=== PATIENT | female | born 1985 | race Caucasian/White ===

== ENCOUNTER 2021-12-09 13:19 | Emergency (ER) | payer BC, SELFPAY ==
[2021-12-09 13:29] VITALS: BP 127/86; PULSE 70; RESP 18; TEMP 37.3; O2SAT 100
--- NOTE | 2021-12-09 13:29 | ED.URI ---
HPI - URI/Sore Throat General Chief Complaint: Upper Respiratory Infection Stated Complaint: sinus, congestion, pink eye Time Seen by Provider: 12/09/21 13:30 Source: patient Mode of arrival: ambulatory Limitations: no limitations History of Present Illness HPI Narrative: 36 yo F presents with c/o on sinus congestion, pressure, drainage for 2 wks. Has had redness, drainage, crusting to L eye for several days. Using leftover polymyxin that has helped somewhat. Thinks she needs stronger abx for eye and abx for sinus infection. Reports her children were also sick with H influenza and pneumonia. Has done multiple covid tests that were negative. yesterdfay began feeling fatigued and not well . Denies N//v/D. All systems reviewed and negative except as noted above. Related Data Allergies Allergy/AdvReac Type Severity Reaction Status Date / Time No Known Allergies Allergy Verified 12/09/21 13:25 Review of Systems Review of Systems: CONSTITUTIONAL: Denies fever, chills, or sweats. EYES: Denies visual changes. Reports redness and discharge left eye. ENT: Reports rhinorrhea, congestion, sore throat and ear pressure bilaterally CARDIOVASCULAR: Denies chest pain, palpitations, or edema. RESPIRATORY: Denies cough or dyspnea. GASTROINTESTINAL: Denies abdominal pain, nausea, vomiting, or diarrhea. GENITOURINARY: Denies dysuria or hematuria. SKIN: Denies rash or itching. MUSCULOSKELETAL: Denies back pain, joint pain, or myalgia. NEUROLOGIC: Denies headache, numbness, or weakness. PSYCHIATRIC: Denies anxiety or depression. All other systems reviewed are negative, except as documented in HPI. PMFSH Comments At time of signature, agree with nursing past medical, surgical, social and family history. There is no relevant family history pertinent to the presenting complaint. Exam Narrative: GENERAL: This is a well-nourished, well-developed patient, in no apparent distress. HEAD: normocephalic, atraumatic. EYES: PERRL. Sclera erythematous left eye with erythema and swelling to conjunctive. Crusting noted. Vision is grossly intact. EARS: External ears normal, auditory canals clear and without drainage, clear fluid to bilateral TMs without perforation or bulging. NOSE: External nose normal with mild purulent nasal drainage, moderate congestion, frontal and maxillary sinus tenderness bilaterally. THROAT: Mucous membranes moist, clear postnasal drainage. NECK: Neck supple, non-tender without lymphadenopathy, masses or thyromegaly. CARDIOVASCULAR: Regular rate and rhythm without murmurs, gallops, or rubs. RESPIRATORY: Clear to auscultation. Breath sounds equal bilaterally. No wheezes, rales, or rhonchi. SKIN: warm, Dry, intact with no suspicious lesions or rash, good texture and turgor. NEURO: awake, alert, and oriented to person, place and time. There were no obvious focal neurologic abnormalities. EXTREMITIES: No joint tenderness, effusion, or edema noted. Course Course Level of Care: Express Care Visit Vital Signs Vital signs: Vital Signs Temperature 37.3 C 12/09/21 13:29 Pulse Rate 70 12/09/21 13:29 Respiratory Rate 18 12/09/21 13:29 Blood Pressure 127/86 12/09/21 13:29 Pulse Oximetry 100 12/09/21 13:29 Oxygen Delivery Room Air 12/09/21 13:29 Temperature 37.3 C 12/09/21 13:29 Pulse Rate 70 12/09/21 13:29 Respiratory Rate 18 12/09/21 13:29 Blood Pressure 127/86 12/09/21 13:29 Pulse Oximetry 100 12/09/21 13:29 Oxygen Delivery Room Air 12/09/21 13:29 Reviewed MDM - URI/Sore Throat MDM Narrative Medical decision making narrative: will treat with abx for bacterial sinus infection due to exam findings and duration of symptoms. Patient is aware of diagnosis, understands and agrees to treatment plan. Anticipatory guidance given. Patient agrees to follow-up as directed and is aware of reasons to seek care at the emergency department. Portions of this record may have been created with voice rec
== END 2021-12-09 13:45 | disposition home or self-care (01) ==
PROVIDERS: Emergency Provider Nurse Practitioner Family; PCP Emergency Medicine
DX: J01.90 Acute sinusitis, unspecified (principal); H10.32 Unspecified acute conjunctivitis, left eye; K50.90 Crohn's disease, unspecified, without complications
CPT/HCPCS: 99213; G0463

== ENCOUNTER 2023-01-27 16:17 | Outpatient (CLI) | payer BC, SELFPAY ==
--- NOTE | ~2023-01-27 | US_ITS ---
EXAMINATION:US venous doppler LE LT INDICATION:Lower extremity pain. TECHNIQUE: Multiple grayscale, color flow and Doppler images of the left lower extremity deep venous systems were obtained and reviewed. COMPARISON:No prior studies for comparison. FINDINGS: The common femoral, superficial femoral and popliteal veins demonstrate normal respiratory variation, augmentation and compressibility. Color flow is also seen within the posterior tibial, pe roneal, greater saphenous and profunda veins. IMPRESSION: 1: No lower extremity deep venous thrombosis. Reviewed, dictated and finalized at location B.
== END 2023-01-27 16:18 | disposition home or self-care (01) ==
PROVIDERS: PCP Internal Medicine; Visit Provider Obstetrics & Gynecology
DX: M79.662 Pain in left lower leg (principal)
CPT/HCPCS: 93971

== ENCOUNTER 2023-02-01 16:19 | Emergency (ER) | payer BC, SELFPAY ==
[2023-02-01 16:27] VITALS: BP 124/74; PULSE 76; RESP 16; TEMP 37; O2SAT 100
--- NOTE | 2023-02-01 17:47 | ED.GENADULT ---
HPI - General Adult General Chief complaint: Upper Respiratory Infection Stated complaint: Sore Throat Source: patient Mode of arrival: ambulatory Limitations: no limitations History of Present Illness HPI narrative: Patient presents for evaluation of sore throat since yesterday. She indicates the feels like she is ?swallowing glass?. No fever, chills, nausea, vomiting, cough, shortness of breath, otalgia. She is currently , approximately 9 weeks gestation. She has had an U/S that confirmed IUP during this . She is not taking any medications for her symptoms. She picked up an iced drink on her way here and that has provided her with a considerable amount of relief in her pain. Her daughter has strep. Related Data Allergies Allergy/AdvReac Type Severity Reaction Status Date / Time No Known Allergies Allergy Verified 12/09/21 13:25 Review of Systems Review of Systems: CONSTITUTIONAL: Denies fever, chills, or sweats. EYES: Denies visual changes, redness, or discharge. ENT: Reports sore throat. Denies rhinorrhea, congestion, or otalgia. CARDIOVASCULAR: Denies chest pain, palpitations, or edema. RESPIRATORY: Denies cough or dyspnea. GASTROINTESTINAL: Denies abdominal pain, nausea, vomiting, or diarrhea. GENITOURINARY: Denies dysuria or hematuria. SKIN: Denies rash or itching. MUSCULOSKELETAL: Denies back pain, joint pain, or myalgia. NEUROLOGIC: Denies headache, numbness, dizziness, or weakness. PSYCHIATRIC: Denies anxiety or depression. [facility] Past Medical History Medical History No pertinent past medical history Surgical History Surgical History No pertinent past surgical history Family History Family History Mother Family history non-contributory Social History Social History Smoking status: Never smoker Substance use: never Living arrangements: with family Gender identity (if verbalized by the patient): Female Sexual Orientation (if Verbalized by the Patient): Straight or Heterosexual Spiritual care concerns: No Exam Narrative: GENERAL: Well-appearing, well-nourished, and in no acute distress. HEAD: Normocephalic, atraumatic. EYES: PERRLA and EOMI. ENT: Nares clear, no rhinorrhea or epistaxis. Mucous membranes moist. Oropharynx without tonsillar hypertrophy exudate or other lesions. Bilateral TMs pearly miramontes nonbulging NECK: Supple. No adenopathy or masses. No carotid bruits or JVD CHEST: Clear to auscultation. No respiratory distress. No wheezes rales or rhonchi HEART: Regular rate and rhythm. No murmur heard. Normal peripheral pulses. ABDOMEN: Soft, nontender, nondistended, normal active bowel sounds. EXTREMITIES: Normal range of motion. No edema. SKIN: Warm, dry, no rash. NEURO: No focal deficits. Alert and oriented x3. PSYCH: Normal mood and affect. Course Course Emergency Course: This is a 38-year-old female who presented for evaluation of sore throat after recent strep exposure. She is currently so we discussed risks versus benefits of initiating therapy vs waiting until throat culture results. We opted to provide her with a script for amoxicillin and she will call her OBGYN to determine whether she should proceed with therapy. She will go to the ER for worsening symptoms. Pt in agreement with plan of care. Level of Care: Express Care Visit Vital Signs Vital signs: Vital Signs Temperature 37.0 C 02/01/23 16:27 Pulse Rate 76 02/01/23 16:27 Respiratory Rate 16 02/01/23 16:27 Blood Pressure 124/74 02/01/23 16:27 Pulse Oximetry 100 02/01/23 16:27 Oxygen Delivery Room Air 02/01/23 16:27 Temperature 37.0 C 02/01/23 16:27 Pulse Rate 76 02/01/23 16:27 Respiratory Rate 16
== END 2023-02-01 17:32 | disposition home or self-care (01) ==
PROVIDERS: Emergency Provider Nurse Practitioner
DX: O99.511 Diseases of the respiratory system complicating pregnancy, first trimester (principal); Z3A.09 9 weeks gestation of pregnancy; J02.9 Acute pharyngitis, unspecified; Z20.818 Contact with and (suspected) exposure to other bacterial communicable diseases
CPT/HCPCS: 87081; 87880; 99213; G0463

== ENCOUNTER 2023-06-23 10:32 | Outpatient (RCR) | payer BC, SELFPAY ==
[2023-06-24] MEDS: RHO(D) IMMUNE GLOBULIN 300 MCG/2 ML SYRINGE IM (09:54)
== END 2023-09-21 23:59 | disposition home or self-care (01) ==
LOC: ANHLAB 10:32
PROVIDERS: PCP Internal Medicine; Visit Provider Obstetrics & Gynecology
DX: Z29.13 Encounter for prophylactic Rho(D) immune globulin (principal); O36.0190 Maternal care for anti-D [Rh] antibodies, unspecified trimester, not applicable or unspecified; Z3A.00 Weeks of gestation of pregnancy not specified
CPT/HCPCS: 36415; 85461; 86850; 86900; 86901; 90384; 96372; J2790

== ENCOUNTER 2023-08-13 15:21 | Outpatient (RCR) | payer BC, SELFPAY ==
[2023-08-12] MEDS: BETAMETHASONE SOD PHOS/ACETATE 30 MG/5 ML VIAL 12 MG IM (14:57)
[2023-08-13] MEDS: BETAMETHASONE SOD PHOS/ACETATE 30 MG/5 ML VIAL 12 MG IM (15:36)
== END 2023-11-10 23:59 | disposition home or self-care (01) ==
LOC: ANHOBOP 15:21
PROVIDERS: PCP Internal Medicine; Visit Provider Obstetrics & Gynecology
DX: O36.8990 Maternal care for other specified fetal problems, unspecified trimester, not applicable or unspecified (principal); Z3A.00 Weeks of gestation of pregnancy not specified
CPT/HCPCS: 96372; J0702

== ENCOUNTER 2023-08-22 11:23 | Outpatient (RCR) | payer BC, SELFPAY ==
[2023-08-22 12:26] LABS: Basophils Absolute Auto 0.1 K/mm3 (0.0-0.1); Basophils Percent Auto 0.7 % (0.2-1.2); Eosinophils Absolute Auto 0.2 K/mm3 (0-0.3); Eosinophils Percent Auto 1.8 % (0-4.4); Hematocrit 33.2 % (37.0-47.0); Immature Granulocyte Absolute 0.27 K/mm3 (0.00-0.031); Immature Granulocyte Percent A 2.7 % (0-0.5); Lymphocytes Absolute Auto 0.85 K/mm3 (0.9-3.2); Lymphocytes Percent Auto 8.4 % (18.3-44.2); Mean Corpuscular HGB Conc 33.1 g/dl (32-36); Mean Corpuscular Hemoglobin 32.2 pg (26-34); Mean Corpuscular Volume 97.1 fl (80-100); Mean Platelet Volume 10.5 fl (7.4-10.4); Monocytes Absolute Auto 0.6 K/mm3 (0.1-0.6); Neutrophils Absolute Auto 8.1 K/mm3 (1.3-6.7); Neutrophils Percent Auto 80.4 % (45.5-73.1); Platelet Count Result 248 k/mm3 (150-375); Red Blood Count 3.42 M/mm3 (4.2-5.4); Red Cell Distribution Width 13.8 % (11.5-14.5); White Blood Count 10.1 K/mm3 (4.5-10.0)
[2023-08-22 12:35] VITALS: BP 122/73; PULSE 91
== END 2023-11-20 23:59 | disposition home or self-care (01) ==
LOC: ANHOBOP 11:23
PROVIDERS: PCP Internal Medicine; Visit Provider Obstetrics & Gynecology
DX: O99.891 Other specified diseases and conditions complicating pregnancy (principal); R23.3 Spontaneous ecchymoses; Z3A.36 36 weeks gestation of pregnancy
CPT/HCPCS: 36415; 59025; 85025

== ENCOUNTER 2023-08-30 23:52 | Inpatient (IN) | payer BC, SELFPAY ==
[2023-08-31] VITALS (98 sets, daily range): BP systolic 98–145; BP diastolic 50–99; PULSE 62–146; RESP 18; TEMP 36.6–36.9; O2SAT 99–100; BMI 24.2
[2023-08-31] MEDS: AMPICILLIN 2 GM/NS 100 ML 2 GM/100 ML BAG IVPB (00:48)
[2023-08-31] MEDS: LACTATED RINGERS 1,000 ML 125 ML IV CONT ×3 (00:48→08:13)
--- NOTE | 2023-08-31 00:58 | LDADM ---
This patient, Colleen Coley, was admitted to Labor/Delivery/Recovery 105 on 08/30/23 at 23:52. Plans for labor, pain management and were discussed with patient. Patient/family oriented to hospital policies and general routines including ID bracelet, bed and alarms, visiting hours, pain management, procedures, bathroom and other care routines, personal items, smoking policy, room service/diet and guest tray routines, security routines, and visiting hours. Patient/Family are encouraged to report perceived risks to care and to ask questions if they do not understand what they are told or what they should do. See OBIX for further documentation.
[2023-08-31 01:13] LABS: Basophils Absolute Auto 0.1 K/mm3 (0.0-0.1); Basophils Percent Auto 0.6 % (0.2-1.2); Eosinophils Absolute Auto 0.2 K/mm3 (0-0.3); Eosinophils Percent Auto 2.4 % (0-4.4); Hematocrit 31.9 % (37.0-47.0); Hemoglobin 10.8 g/dL (12.0-15.0); Immature Granulocyte Absolute 0.23 K/mm3 (0.00-0.031); Immature Granulocyte Percent A 2.3 % (0-0.5); Lymphocytes Absolute Auto 1.03 K/mm3 (0.9-3.2); Lymphocytes Percent Auto 10.5 % (18.3-44.2); Mean Corpuscular HGB Conc 33.9 g/dl (32-36); Mean Corpuscular Hemoglobin 32.6 pg (26-34); Mean Corpuscular Volume 96.4 fl (80-100); Monocytes Absolute Auto 0.6 K/mm3 (0.1-0.6); Monocytes Percent Auto 6.3 % (2.6-8.5); Neutrophils Absolute Auto 7.7 K/mm3 (1.3-6.7); Neutrophils Percent Auto 77.9 % (45.5-73.1); Platelet Count Result 203 k/mm3 (150-375); Red Blood Count 3.31 M/mm3 (4.2-5.4); Red Cell Distribution Width 13.6 % (11.5-14.5); White Blood Count 9.8 K/mm3 (4.5-10.0)
[2023-08-31] MEDS: AMPICILLIN 1 GM/NS 50 ML 1 GM/50 ML BAG IVPB ×2 (04:50→08:31)
[2023-08-31] MEDS: OXYTOCIN 30 UNITS/NS 500 ML 30 UNITS/500 ML BAG IV CONT (05:55)
--- NOTE | 2023-08-31 08:05 | WPDOBADMIT ---
Obstetrics - Admit Note Admission Note: record reviewed. No pertinent additions to the history and/or any subsequent changes in the physical findings that are not consistent with the expected course of the were found. Additions to the history and/or subsequent changes in the physical findings follow. Admitted with SROM in early labor @ 37 5/7 wks. Stalled labor at 6 cm so augmenting with pitocin and ROM forebag. FHTs category 1. Plans epidural now.
--- NOTE | 2023-08-31 08:28 | WPDANESEPP ---
Anes - Eval Pre Procedure Procedure: labor pain management Date/Time: 08/31/23 08:28 Surgeon: Kika (covering for Stephanie) Preop Diagnosis: Pain during labor Pre Op Diagnosis: Leaking Patient Data Age: 38 Gender: F Height: 1.63 m Weight: 64 kg Last Vital Signs Temp 97.9 F 08/31/23 06:30 Pulse 68 08/31/23 08:25 BP 125/72 08/31/23 08:25 Pulse Ox 100 08/31/23 08:26 O2 Del Method Room Air 08/31/23 06:15 Allergies Allergy/AdvReac Type Severity Reaction Status Date / Time No Known Allergies Allergy Verified 12/09/21 13:25 Home Medications Medication Instructions Recorded Confirmed Type amoxicillin 875 mg-potassium 1 tablet PO Q12H 10 days #20 tabs 12/09/21 Rx clavulanate 125 mg tablet methylprednisolone 4 mg tablets in See Rx Instructions PO .COMPLEX 12/09/21 Rx a dose pack (Medrol (Jaron)) #21 ea ofloxacin 0.3 % eye drops See Rx Instructions EACH EYE 12/09/21 Rx .COMPLEX #5 mL amoxicillin 500 mg capsule 500 mg PO Q12H #20 caps 02/01/23 Rx Laboratory Tests 08/31/23 00:43 WBC 9.8 K/mm3 (4.5-10.0) RBC 3.31 L M/mm3 (4.2-5.4) Hgb 10.8 L g/dL (12.0-15.0) Hct 31.9 L % (37.0-47.0) MCV 96.4 fl (80-100) MCH 32.6 pg (26-34) MCHC 33.9 g/dl (32-36) RDW 13.6 % (11.5-14.5) Plt Count 203 k/mm3 (150-375) MPV 11.0 H fl (7.4-10.4) Immature Gran % (Auto) 2.3 H % (0-0.5) Neut % (Auto) 77.9 H % (45.5-73.1) Lymph % (Auto) 10.5 L % (18.3-44.2) [place] % (Auto) 6.3 % (2.6-8.5) Eos % (Auto) 2.4 % (0-4.4) Baso % (Auto) 0.6 % (0.2-1.2) Lymph # (Auto) 1.03 K/mm3 (0.9-3.2) [place] # (Auto) 0.6 K/mm3 (0.1-0.6) Eos # (Auto) 0.2 K/mm3 (0-0.3) Baso # (Auto) 0.1 K/mm3 (0.0-0.1) Abs Immat Gran (auto) 0.23 H K/mm3 (0.00-0.031) Absolute Neuts (auto) 7.7 H K/mm3 (1.3-6.7) Absolute Nucleated RBC 0.000 K/mm3 (0.0-0.012) Nucleated RBC % 0.0 % (0.0-0.2) RPR Pending Blood Type A Negative Antibody Screen Positive Antibody Identification Pending Antigen Identification Pending MICHAEL, IgG Interpret Pending MICHAEL, Poly Interpret Negative MICHAEL, Complement Interp Pending Patient hx anesthesia problems: none Family hx anesthesia problems: none Results Review: All pre-operative results and documents have been reviewed as part of the pre-operative evaluation. [facility] Past Medical History Medical History Crohn's disease No pertinent past medical history Surgical History Surgical History No pertinent past surgical history Family History Family History Mother Family history non-contributory Social History Social History Smoking status: Never smoker Second hand tobacco smoke exposure: No Substance use: never Do You Feel Safe in your Home?: Yes Lack of Transportation: No Lack of Food: Never True Current Housing: I Have Housing Concerned About Future Housing: No Difficulty Paying Gas/Electric Bills: No Difficulty Paying for Meds: No Currently Unemployed: No Education: Master's Degree or Higher Difficulty w/ Childcare or Family Care: No Living arrangements: with family Gender identity (if verbalized by the patient): Female Sexual Orientation (if Verbalized by the Patient): Straight or Heterosexual Spiritual care concerns: No Exam Day of Procedure 08/31/23 08:28
--- NOTE | 2023-08-31 10:45 | PM.OBPRVD ---
OB - Vaginal Delivery Note Procedure Delivery date: 08/31/23 Induction method: None Delivery augmentation: Pitocin Delivery monitor: External FHT and External Uterine Route of delivery: Laceration Description: Perineal - 2nd Degree and Labial Delivery repair: vicryl (3-0) Specimen: No Quantitative Blood Loss (ml): 750 Anesthesia type: Epidural Disposition: Floor Complications: No immediate complications Narrative: cord blood and cord sent for paid storage per patient prearranged plan Baby Date of : 08/31/23 Weeks of gestation at delivery: 37 (37 5/7) Infant gender: Female presentation: vertex position: Right Occiput Anterior Placenta delivery description: Spontaneous Cord Vessel Description: 3 Vessels score one minute: 8 score five minutes: 10
--- NOTE | 2023-08-31 10:46 | PM.OBDSVD ---
DS: Admitting Diagnosis Discharge Date 09/01/23 Admitting Diagnosis IUP 37 5/7 wks with SROM in labor DS: Discharge Diagnosis Discharge Diagnosis (1) (normal spontaneous vaginal delivery): Code(s): O80 - Encounter for full-term uncomplicated delivery Status: Acute OB - DS: Summary OB Procedures : Ultrasound OB Procedures Intrapartum: Spontaneous Vag Delivery OB Procedures: : None Peripartum Data Delivery Method: Natural Vaginal Laceration Description: Perineal - 2nd Degree and Labial Episiotomy description: None complications: none Status at Discharge Functional status at discharge: independent ambulation Overall status at discharge: patient is progressing back to baseline Time Spent with Patient Time attestation: Total time spent providing and/or coordinating discharge services: DS: Data Data Completed and Pending Labs on day of discharge: Labs from last 24 hours 08/31/23 00:43 WBC 9.8 RBC 3.31 L Hgb 10.8 L Hct 31.9 L MCV 96.4 MCH 32.6 MCHC 33.9 RDW 13.6 Plt Count 203 MPV 11.0 H Immature Gran % (Auto) 2.3 H Neut % (Auto) 77.9 H Lymph % (Auto) 10.5 L [place] % (Auto) 6.3 Eos % (Auto) 2.4 Baso % (Auto) 0.6 Lymph # (Auto) 1.03 [place] # (Auto) 0.6 Eos # (Auto) 0.2 Baso # (Auto) 0.1 Abs Immat Gran (auto) 0.23 H Absolute Neuts (auto) 7.7 H Absolute Nucleated RBC 0.000 Nucleated RBC % 0.0 RPR Pending Blood Type A Negative Antibody Screen Positive Antibody Identification Pending Antigen Identification Pending MICHAEL, IgG Interpret Pending MICHAEL, Poly Interpret Negative MICHAEL, Complement Interp Pending Discharge Plan Discharge Attending physician on discharge: Jason Brown Discharging Clinician: Jason Brown Anticipated Discharge Date/Time: 09/01/23 10:47 Patient Disposition: Home, Self-Care Activity: pelvic rest Diet: regular Discharge Instructions: Call or return if temperature above 100.4? F, increased abdominal pain, increased vaginal bleeding or any new problems. Education: Mom and Baby Guide Given to: Mother Follow-Up: Call your delivering provider's office for an appointment to be seen in: 6 Weeks Mom and baby should come to the [facility] for the follow-up appointment. Appointment Date/Time: September 02, 2023 at 1:30 pm What to expect at your follow-up visit: Physical Assessment Call [phone] if you are unable to keep your appointment time. BREAST CARE: * Wear a snug supportive bra. * For engorgement discomfort: Breast Feeding: * Apply warm moist washcloths * Express milk as needed to relieve engorgement * Wear loose clothing Bottle Feeding: * May apply ice packs * For sore nipples: * Identify correct latch-on * Apply warm moist washcloths before and after nursing * Air dry nipples after nursing * May apply Lansinoh cream to nipples EPISIOTOMY/PERINEAL CARE: * Until bleeding stops, use your kieran bottle after urinating * Change your pad frequently throughout the day * You may take sitz baths several times a day (fill your bathtub with warm water and soak for 20 minutes.) Do NOT bathe in the water * No tub baths until seen by your physician - You may shower ACTIVITY: * Rest as much as possible. * Do not exercise or lift anything heavier than your baby (such as laundry or other children.) * Avoid stairs or driving as much as possible. * Do not put anything into the vagina. No douching, tampons, or sexual activity until seen by physician. NOTIFY PHYSICIAN IF YOU HAVE ANY QUESTIONS OR IF ANY OF THE FOLLOWING SYMPTOMS OCCUR: * If your episiotomy/perineum becomes red, swollen, or more painful than what you have experienced in the hospital. * If your vaginal bleeding becomes foul smelling. * If your vaginal bleeding becomes more heavy than a period or if your bleeding ch
[2023-08-31] MEDS: OXYTOCIN 30 UNITS/NS 500 ML 30 UNITS/500 ML BAG 125 UNITS IV CONT (11:01)
[2023-08-31] MEDS: METHYLERGONOVINE MALEATE 0.2 MG/ML VIAL IM ×2 (12:45→20:30)
--- NOTE | 2023-08-31 13:35 | PC.NURSE ---
Patient transferred to post room #285 via wheelchair. Support person present. Oriented to unit, room, information board, rooming in, admission packet and security measures. Patient verbalizes understanding.
[2023-08-31] MEDS: DOCUSATE SODIUM 100 MG CAPSULE PO (16:14)
[2023-08-31] MEDS: POLYSACCHARIDE IRON COMPLEX 150 MG CAPSULE PO (16:14)
[2023-08-31] MEDS: LANOLIN (LANSINOH) 7.5 GM CREAM 1 APPLIC TOPICAL (16:14)
[2023-08-31] MEDS: IBUPROFEN 600 MG TABLET PO (20:45)
[2023-08-31] MEDS: ACETAMINOPHEN 325 MG TABLET 650 MG PO (21:19)
[2023-09-01 04:00] VITALS: BP 114/70; PULSE 70; RESP 18; TEMP 36.5; O2SAT 99
[2023-09-01] MEDS: IBUPROFEN 600 MG TABLET PO (04:46)
[2023-09-01 06:08] LABS: Hematocrit 28.8 % (37.0-47.0); Hemoglobin 9.6 g/dL (12.0-15.0)
[2023-09-01] MEDS: MULTIVIT/MIN/PREN/FOL AC/IRON TABLET 1 TAB PO (08:04)
[2023-09-01] MEDS: DOCUSATE SODIUM 100 MG CAPSULE PO (08:04)
[2023-09-01] MEDS: ACETAMINOPHEN 325 MG TABLET 650 MG PO (08:04)
[2023-09-01] MEDS: POLYSACCHARIDE IRON COMPLEX 150 MG CAPSULE PO (08:04)
--- NOTE | 2023-09-01 08:21 | WPDANLDPN2 ---
Anes-Prog Note L&D Date/Time: 09/01/23 08:21 Comfortable throughout: labor and delivery Neuraxial method: epidural Epidural/Spinal procedure site: clean & non-tender Neuro status: Neuro function grossly intact. Cardiovascular status: normal Respiratory status: normal Airway patency: baseline Mental status: baseline Post-Op hydration status: normal Vital Signs: Last Vital Signs Temp 36.5 C 09/01/23 04:00 Pulse 70 09/01/23 04:00 Resp 18 09/01/23 04:00 BP 114/70 09/01/23 04:00 Pulse Ox 99 09/01/23 04:00 O2 Del Method Room Air 08/31/23 06:15 Pain score (VAS): 10 I/O: Intake & Output 08/31/23 09/01/23 09/01/23 23:59 07:59 15:59 Intake Total 500 Balance 500 Post-procedural complaints: none Patient feedback: Patient satisfied with anesthetic care.
[2023-09-01 08:30] VITALS: BP 110/89; PULSE 72; RESP 16; TEMP 36.7; O2SAT 100
--- NOTE | 2023-09-01 08:55 | PM.OBPNVD ---
OB - PN: Subj Subjective Date/time seen: 09/01/23 08:55 Narrative: Pain OK. Would like to go home. OB - PN: Obj Data Labs 09/01/23 04:39 Labs: Laboratory Results - last 24 hr 08/31/23 09/01/23 00:43 04:39 Hgb 9.6 L Hct 28.8 L Antibody Identification Inconclusive Antigen Identification TNP MICHAEL, IgG Interpret Not Performed MICHAEL, Complement Interp Not Performed OB - PN A/P Plan Comments: A: PPD#1, doing well. P: Home to f/u 6 weeks. Exam Psych: Other: AVSS ABD soft, nontender, fundus firm EXT nontender
--- NOTE | 2023-09-01 08:55 | PM.OBDSVD ---
DS: Admitting Diagnosis Discharge Date 09/01/23 Admitting Diagnosis IUP at term Labor DS: Discharge Diagnosis Discharge Diagnosis (1) (normal spontaneous vaginal delivery): Code(s): O80 - Encounter for full-term uncomplicated delivery Status: Acute OB - DS: Summary OB Procedures : None OB Procedures Intrapartum: Spontaneous Vag Delivery OB Procedures: : None Peripartum Data Laceration Description: Perineal - 2nd Degree and Labial Episiotomy description: None Time Spent with Patient Time attestation: Total time spent providing and/or coordinating discharge services: DS: Data Data Completed and Pending Labs on day of discharge: Labs from last 24 hours 09/01/23 08/31/23 04:39 00:43 Hgb 9.6 L Hct 28.8 L Antibody Identification Inconclusive Antigen Identification TNP MICHAEL, IgG Interpret Not Performed MICHAEL, Complement Interp Not Performed Discharge Plan Discharge Attending physician on discharge: Jason Brown Discharging Clinician: Jason Brown Anticipated Discharge Date/Time: 09/01/23 10:47 Patient Disposition: Home, Self-Care Activity: pelvic rest Diet: regular Discharge Instructions: Call or return if temperature above 100.4? F, increased abdominal pain, increased vaginal bleeding or any new problems. Stand Alone Forms: General Discharge Information Follow-up/Referrals: Jason Brown MD [Physician] - 6 Weeks Discharge Medications: New ibuprofen 600 mg tablet 600 mg PO Q6H PRN (Reason: cramps) Qty: 30 0RF ferrous sulfate 325 mg (65 mg iron) tablet 325 mg PO DAILY Qty: 30 0RF Discontinued amoxicillin 500 mg capsule 500 mg PO Q12H Qty: 20 0RF methylprednisolone [Medrol (Jaron)] 4 mg tablets,dose pack See Rx Instructions PO .COMPLEX Qty: 21 0RF Rx Instructions: orally per package directions amoxicillin-pot clavulanate 875-125 mg tablet 1 tablet PO Q12H 10 Days Qty: 20 0RF ofloxacin 0.3 % drops See Rx Instructions .ROUTE .COMPLEX Qty: 5 0RF Rx Instructions: put 1-2 drps into affected eye(s) every 2-4 h x 2 days, then 1-2 drps 4 times/day days 3-7 Date of admission: 08/30/23 23:52 Primary Care Provider: Meena,Dominique Colunga Admitting Provider: Jason Brown Attending physician on admission: Jason Brown Condition: Stable
--- NOTE | 2023-09-01 10:53 | PC.NURSE ---
[id number] Consulted with mother concerning needs and she shared her ability to independently latch infant optimally without pain. Mother is feeding appropriately for growth of infant and understands stimulating infant to eat if needed. has had appropriate feedings in the last 24 hours meets the outcomes for weight, output, blood sugar and jaundice at this time. Reinforced understanding of milk production, transition of milk, signs of adequate intake, transition of stool, prevention/relief of engorgement, plugged ducts, mastitis, responsive watching for feeding cues, the different methods of stimulating to breastfeed 1-3 hours after the start of the last feeding, community resources, and when to call a provider using the resource of the feeding sheet along with the mom and baby guide. Mother voiced understanding of the information shared, is confident to continue effectively her at home, when to call for assistance, denies any additional assistance or education at this time.
--- NOTE | 2023-09-01 11:00 | NBADM ---
[id number] Introductions were made, then consulted with patient to assess needs related to . Discussed with mother her?plans to feed?her infant and the?experience so far. was bottle fed formula through the night. Mother is demonstrating her ability to independently latch infant to the right breast in a laid-back position and this is the second breast to feed on at this session. She denies any nipple discomfort and is responsively . Swallowing is visualized. is currently meeting outcomes for weight, output, jaundice, blood sugar and feeding frequencies of 8-12 times in 24 hours. Mother is encouraged to call for assistance if her infant doesn?t latch, pain with latching, questions or concerns. Mother voiced understanding of information shared along with the mom/baby guide for an additional resource. Reinforced understanding of milk production, transition of milk, signs of adequate intake, transition of stool, prevention/relief of engorgement, plugged ducts, mastitis, responsive watching for feeding cues, the different methods of stimulating to breastfeed 1-3 hours after the start of the last feeding, community resources, medications using LactMed, and when to call a provider using the resource of the feeding sheet along with the mom and baby guide. Mother voiced understanding of the information shared, is confident to continue effectively her at home, when to call for assistance, denies any additional assistance or education at this time.
--- NOTE | 2023-09-01 12:19 | PC.NURSE ---
Patient viewed the discharge video Mother & Baby Care, The First Two Weeks . Patient was given the opportunity and encouraged to ask questions. Patient verbalized understanding of information shared and has been given the mother/baby guide for home reference.
[2023-09-02 12:36] LABS: Rapid Plasma Reagin Non-Reactive (NonReactive)
[2023-09-02 14:01] VITALS: BP 127/77; PULSE 77; RESP 18; TEMP 36.9; O2SAT 100
== END 2023-09-01 14:25 | disposition home or self-care (01) | DRG 807 ==
LOC: ANHLDR 08-31 10:48 → ANHOB2 08-31 15:01
PROVIDERS: Admitting Provider Obstetrics & Gynecology Gynecology; PCP Internal Medicine; Visit Provider Obstetrics & Gynecology
DX: O62.3 Precipitate labor (principal); Z37.0 Single live birth; O70.1 Second degree perineal laceration during delivery; O99.824 Streptococcus B carrier state complicating childbirth; Z3A.37 37 weeks gestation of pregnancy
CPT/HCPCS: 36415; 85014; 85018; 85025; 86592; 86850; 86870; 86880; 86900; 86901; 86902; 86971; A9270; J0290; J2210; J2590; J2795; J7120

== ENCOUNTER 2023-09-06 20:29 | Outpatient (CLI) | payer BC, SELFPAY ==
[2023-09-06] VITALS (8 sets, daily range): BP systolic 121–151; BP diastolic 75–102; PULSE 68–93
[2023-09-06 21:00] LABS: Basophils Absolute Auto 0.1 K/mm3 (0.0-0.1); Basophils Percent Auto 0.7 % (0.2-1.2); Eosinophils Absolute Auto 0.4 K/mm3 (0-0.3); Eosinophils Percent Auto 3.9 % (0-4.4); Hematocrit 34.2 % (37.0-47.0); Hemoglobin 11.3 g/dL (12.0-15.0); Immature Granulocyte Absolute 0.11 K/mm3 (0.00-0.031); Immature Granulocyte Percent A 1.1 % (0-0.5); Lymphocytes Absolute Auto 1.16 K/mm3 (0.9-3.2); Lymphocytes Percent Auto 11.5 % (18.3-44.2); Mean Corpuscular Hemoglobin 32.1 pg (26-34); Mean Corpuscular Volume 97.2 fl (80-100); Mean Platelet Volume 9.7 fl (7.4-10.4); Monocytes Absolute Auto 0.6 K/mm3 (0.1-0.6); Monocytes Percent Auto 5.6 % (2.6-8.5); Neutrophils Absolute Auto 7.8 K/mm3 (1.3-6.7); Neutrophils Percent Auto 77.2 % (45.5-73.1); Platelet Count Result 359 k/mm3 (150-375); Red Blood Count 3.52 M/mm3 (4.2-5.4); Red Cell Distribution Width 13.3 % (11.5-14.5); White Blood Count 10.1 K/mm3 (4.5-10.0)
[2023-09-06 21:18] LABS: Alanine Aminotransferase 20 U/L (6-35); Albumin Level 4.1 g/dL (3.5-5.1); Alkaline Phosphatase 100 U/L (38-126); Anion Gap 7 mmol/L (4-12); Aspartate Amino Transferase 25 U/L (14-36); Bilirubin,Total 0.5 mg/dL (0.2-1.3); Blood Urea Nitrogen 11 mg/dL (7-17); Calcium 9.2 mg/dL (8.4-10.2); Carbon Dioxide 24 mmol/L (22-30); Chloride 108 mmol/L (98-107); Estimated Glomerular Filt Rate > 60; Glucose 105 mg/dL (65-110); Potassium 3.9 mmol/L (3.4-5.0); Sodium 139 mmol/L (137-145); Uric Acid 4.3 mg/dL (2.5-7.5)
--- NOTE | 2023-09-06 21:53 | PC.NURSE ---
Called Dr. Brown with pt status. Informed of pt admitted for complaints of RUQ pain and tenderness, and elevated BP at home. Pt states that she had a headache for 2days. She did not have a headache on admission, but states that she is starting to get one. Lab results and BPs given. Orders received for UA and Motrin, if no protein in UA, may take pt to ED for further evaluation.
[2023-09-06] MEDS: IBUPROFEN 600 MG TABLET PO (22:16)
[2023-09-06 22:27] LABS: Appearance Urine Clear (Clear); Bacteria Urine None Seen /hpf; Bilirubin Urine Negative (Negative); Blood Urine 3+ (Negative); Color Urine Yellow (Yellow); Glucose Urine UA Negative (Negative); Ketones Urine Negative (Negative); Leukocyte Esterase Ur 1+ LEU/UL (Negative); Nitrate Urine Negative (Negative); Non Pathogenic Casts 0-2; Protein Urine Negative (Negative); RBC Urine 21-50 /hpf (0-2); Specific Grav Ur 1.007 (1.001-1.035); Squamous Epithelial Cell Urine None Seen /hpf (Few); Urobilinogen Urine 0.2 mg/dL (<2.0); WBC Urine 21-50 /hpf (0-3)
[2023-09-06 22:28] LABS: Add Urine Microscopic? YES
--- NOTE | 2023-09-06 23:10 | PC.NURSE ---
Pt taken to ED. Decided that she didn't want to stay and would go home. Pt instructed to return if symptoms worsen. Given preeclampsia precautions.
--- NOTE | 2023-09-06 23:15 | PC.NURSE ---
Dr. Brown informed that pt decided to go home instead of to the ED.
== END 2023-09-06 23:15 | disposition home or self-care (01) ==
LOC: ANHOBOP 20:38 → ANHOBPP 09-11 06:36
PROVIDERS: PCP Internal Medicine; Visit Provider Obstetrics & Gynecology
DX: O13.9 Gestational [pregnancy-induced] hypertension without significant proteinuria, unspecified trimester (principal); R10.11 Right upper quadrant pain; Z3A.00 Weeks of gestation of pregnancy not specified
CPT/HCPCS: 36415; 80053; 81001; 84550; 85025; 99199; A9270

== ENCOUNTER 2023-09-08 10:28 | Outpatient (CLI) | payer BC, SELFPAY ==
--- NOTE | ~2023-09-08 | US_ITS ---
EXAMINATION: US right upper quadrant DATE: 09/08/2023 10:46 INDICATION: Right upper quadrant abdominal pain. TECHNIQUE: Multiple grayscale and Doppler ultrasound images of the abdomen were obtained. COMPARISON: None FINDINGS: The visualized portions of the head and body of the pancreas are normal. There are 9 mm and 9 mm hyperechoic masses in the liver. There is normal flow in main portal vein. The gallbladder is n ormal in size. No gallstones or gallbladder wall thickening. There was no sonographic Pérez sign. Th e common duct is normal and measures 3 mm. IMPRESSION: 1. Two hyperechoic 9 mm liver masses. In the absence of known malignancy or chronic liver disease, th jose findings are likely hemangiomas. Reviewed, dictated and finalized at location E. IMPRESSION: 1. Two hyperechoic 9 mm liver masses. In the absence of known malignancy or chr onic liver disease, these findings are likely hemangiomas.
== END 2023-09-08 10:29 ==
PROVIDERS: PCP Internal Medicine; Visit Provider Obstetrics & Gynecology
DX: R10.11 Right upper quadrant pain (principal); K76.89 Other specified diseases of liver
CPT/HCPCS: 76705

== ENCOUNTER 2023-09-08 11:03 | Outpatient (CLI) | payer BC, SELFPAY ==
[2023-09-08 11:50] LABS: Hematocrit 34.7 % (37.0-47.0); Hemoglobin 11.4 g/dL (12.0-15.0); Mean Corpuscular HGB Conc 32.9 g/dl (32-36); Mean Corpuscular Volume 97.5 fl (80-100); Mean Platelet Volume 9.9 fl (7.4-10.4); Platelet Count Result 406 k/mm3 (150-375); Red Blood Count 3.56 M/mm3 (4.2-5.4); Red Cell Distribution Width 13.2 % (11.5-14.5); White Blood Count 8.6 K/mm3 (4.5-10.0)
[2023-09-08 12:02] LABS: Alanine Aminotransferase 19 U/L (6-35); Albumin Level 4.1 g/dL (3.5-5.1); Alkaline Phosphatase 103 U/L (38-126); Anion Gap 7 mmol/L (4-12); Aspartate Amino Transferase 31 U/L (14-36); Bilirubin,Total 0.7 mg/dL (0.2-1.3); Blood Urea Nitrogen 12 mg/dL (7-17); Calcium 9.3 mg/dL (8.4-10.2); Carbon Dioxide 25 mmol/L (22-30); Chloride 108 mmol/L (98-107); Estimated Glomerular Filt Rate > 60; Glucose 94 mg/dL (65-110); Potassium 4.1 mmol/L (3.4-5.0); Sodium 140 mmol/L (137-145); Uric Acid 4.8 mg/dL (2.5-7.5)
== END 2023-09-08 11:04 | disposition home or self-care (01) ==
LOC: ANHGOSHLAB 11:05
PROVIDERS: PCP Internal Medicine; Visit Provider Obstetrics & Gynecology
DX: R10.11 Right upper quadrant pain (principal); O16.5 Unspecified maternal hypertension, complicating the puerperium
CPT/HCPCS: 36415; 80053; 84550; 85027

== ENCOUNTER 2023-09-08 16:10 | Observation (INO) | payer BC, SELFPAY ==
[2023-09-08] VITALS (65 sets, daily range): BP systolic 117–147; BP diastolic 70–89; PULSE 55–92; RESP 12–17; TEMP 36.6–37.3; O2SAT 95–99
[2023-09-08 17:10] LABS: Basophils Absolute Auto 0.1 K/mm3 (0.0-0.1); Basophils Percent Auto 0.5 % (0.2-1.2); Eosinophils Absolute Auto 0.4 K/mm3 (0-0.3); Eosinophils Percent Auto 3.9 % (0-4.4); Hematocrit 34.1 % (37.0-47.0); Hemoglobin 11.4 g/dL (12.0-15.0); Immature Granulocyte Absolute 0.07 K/mm3 (0.00-0.031); Immature Granulocyte Percent A 0.8 % (0-0.5); Lymphocytes Absolute Auto 0.98 K/mm3 (0.9-3.2); Lymphocytes Percent Auto 10.6 % (18.3-44.2); Mean Corpuscular HGB Conc 33.4 g/dl (32-36); Mean Corpuscular Hemoglobin 32.4 pg (26-34); Mean Corpuscular Volume 96.9 fl (80-100); Mean Platelet Volume 9.7 fl (7.4-10.4); Monocytes Absolute Auto 0.5 K/mm3 (0.1-0.6); Monocytes Percent Auto 5.2 % (2.6-8.5); Neutrophils Absolute Auto 7.3 K/mm3 (1.3-6.7); Platelet Count Result 426 k/mm3 (150-375); Red Blood Count 3.52 M/mm3 (4.2-5.4); Red Cell Distribution Width 13.2 % (11.5-14.5); White Blood Count 9.3 K/mm3 (4.5-10.0)
[2023-09-08 17:19] LABS: Alanine Aminotransferase 18 U/L (6-35); Alkaline Phosphatase 95 U/L (38-126); Anion Gap 4 mmol/L (4-12); Aspartate Amino Transferase 27 U/L (14-36); Bilirubin,Total 0.6 mg/dL (0.2-1.3); Blood Urea Nitrogen 12 mg/dL (7-17); Calcium 8.9 mg/dL (8.4-10.2); Carbon Dioxide 25 mmol/L (22-30); Chloride 106 mmol/L (98-107); Estimated Glomerular Filt Rate > 60; Glucose 98 mg/dL (65-110); Potassium 3.7 mmol/L (3.4-5.0); Sodium 135 mmol/L (137-145)
[2023-09-08 18:17] LABS: Appearance Urine Cloudy (Clear); Bacteria Urine None Seen /hpf; Bilirubin Urine Negative (Negative); Blood Urine 1+ (Negative); Color Urine Yellow (Yellow); Glucose Urine UA Negative (Negative); Ketones Urine Negative (Negative); Leukocyte Esterase Ur Negative LEU/UL (Negative); Nitrate Urine Negative (Negative); Non Pathogenic Casts 0-2; Protein Urine Negative (Negative); Specific Grav Ur 1.016 (1.001-1.035); Squamous Epithelial Cell Urine None Seen /hpf (Few); WBC Urine 0-5 /hpf (0-3); pH Urine 7.5 (5.0-9.0)
[2023-09-08 18:27] LABS: Add Urine Microscopic? YES
[2023-09-08] MEDS: LACTATED RINGERS 1,000 ML 75 ML IV CONT (19:29)
[2023-09-08] MEDS: MAGNESIUM SULF 4 GM/WATER100ML 4 GM/100 ML BAG IVPB (19:30)
[2023-09-08] MEDS: MAGNESIUM SULF 20GM/WATER500ML 500 ML 50 MG IV CONT (20:08)
--- NOTE | 2023-09-08 21:46 | OBADM ---
This patient, Colleen Coley, admitted to the OB room [facility] for observation. Patient/family oriented to hospital policies and general routines including ID bracelet, bed and alarms, visiting hours, pain management, procedures, bathroom and other care routines, personal items, smoking policy, room service/diet, and visiting hours. Patient/Family are encouraged to report perceived risks to care and to ask questions if they do not understand what they are told or what they should do.
[2023-09-09] VITALS (117 sets, daily range): BP systolic 112–132; BP diastolic 68–91; PULSE 41–96; RESP 14–18; TEMP 36.6–36.8; O2SAT 84–100; BMI 24.5
[2023-09-09] MEDS: IBUPROFEN 600 MG TABLET PO ×2 (00:15→09:03)
[2023-09-09 00:36] LABS: Hematocrit 33.2 % (37.0-47.0); Hemoglobin 11.1 g/dL (12.0-15.0); Mean Corpuscular HGB Conc 33.4 g/dl (32-36); Mean Corpuscular Hemoglobin 32.1 pg (26-34); Mean Platelet Volume 9.4 fl (7.4-10.4); Platelet Count Result 375 k/mm3 (150-375); Red Blood Count 3.46 M/mm3 (4.2-5.4); Red Cell Distribution Width 13.2 % (11.5-14.5); White Blood Count 8.4 K/mm3 (4.5-10.0)
[2023-09-09 00:45] LABS: Alanine Aminotransferase 16 U/L (6-35); Albumin Level 3.8 g/dL (3.5-5.1); Alkaline Phosphatase 99 U/L (38-126); Anion Gap 3 mmol/L (4-12); Aspartate Amino Transferase 26 U/L (14-36); Bilirubin,Total 0.4 mg/dL (0.2-1.3); Blood Urea Nitrogen 9 mg/dL (7-17); Calcium 7.3 mg/dL (8.4-10.2); Carbon Dioxide 27 mmol/L (22-30); Chloride 105 mmol/L (98-107); Estimated Glomerular Filt Rate > 60; Glucose 101 mg/dL (65-110); Potassium 3.8 mmol/L (3.4-5.0); Sodium 135 mmol/L (137-145)
[2023-09-09] MEDS: ACETAMINOPHEN 325 MG TABLET 650 MG PO (04:54)
[2023-09-09] MEDS: MAGNESIUM SULF 20GM/WATER500ML 500 ML 50 MG IV CONT (06:22)
[2023-09-09] MEDS: LACTATED RINGERS 1,000 ML 75 ML IV CONT (08:21)
--- NOTE | 2023-09-09 09:08 | PC.NURSE ---
0900- Dr. Brown at bedside, orders received to stop magnesium and give procardia XL 30 at 1200, monitor vital signs Q2.
[2023-09-09] MEDS: NIFEdipine 30 MG TAB.ER.24 PO (12:24)
--- NOTE | 2023-09-09 12:59 | PM.IMHP ---
H&P: HPI History of Present Illness Date/Time: 09/09/23 13:00 Chief Complaint: Pain Narrative: 38 y/o female ppd #9 after vaginal delivery. She is bottle feeding. She has had RUQ pain for several days. Pain has been consistent, does not wax and wane. No fevers. No relationship of pain to meals. Sister has had a cholecystectomy for stones, but Colleen's ultrasound of the RUQ yesterday showed a normal gallbladder. There are two small likely hemangiomas. Transaminases have been normal. Her bp has been in the 140/90 range, which is new for her. No swelling. Occasional mild headaches, usually responsive to ibuprofen or Tylenol. We had started Procardia XL 30 mg daily, last dose at noon yesterday. Lochia mild, though she had a larger gush of blood while shopping at [employer] before her RUQ ultrasound yesterday. Bleeding currently minimal. She was brought in for observation last evening, was given magnesium sulfate overnight. Today her RUQ pain is much improved. She says her headache has responded to treatment. Feels really much better today. We had stopped her magnesium a few hours ago, and she says she is still feeling fine. Would like to go home. Review of Systems Review of Systems: All systems reviewed & are unremarkable except as noted in HPI and below PMFSH Past Medical History Medical History Crohn's disease No pertinent past medical history Surgical History Surgical History No pertinent past surgical history Family History Family History Mother Family history non-contributory Social History Social History Smoking status: Never smoker Second hand tobacco smoke exposure: No Substance use: never Do You Feel Safe in your Home?: Yes Lack of Transportation: No Lack of Food: Never True Current Housing: I Have Housing Concerned About Future Housing: No Difficulty Paying Gas/Electric Bills: No Difficulty Paying for Meds: No Currently Unemployed: No Education: Master's Degree or Higher Difficulty w/ Childcare or Family Care: No Living arrangements: with family Gender identity (if verbalized by the patient): Female Sexual Orientation (if Verbalized by the Patient): Straight or Heterosexual Spiritual care concerns: No Meds Home Medications and Allergies Home Medications Medication Instructions Recorded Confirmed Type ferrous sulfate 325 mg (65 mg 325 mg PO DAILY #30 tabs 09/01/23 09/08/23 Rx iron) tablet acetaminophen 500 mg tablet 1,000 mg PO Q6H PRN Pain 09/08/23 09/08/23 History azathioprine 50 mg tablet 100 mg PO DAILY 09/08/23 09/08/23 History ibuprofen 600 mg tablet 400 mg PO Q6H PRN cramps 09/08/23 09/08/23 History prenat.vits,siobhan,doq-smdc-ualxa 1 tablet PO DAILY 09/08/23 09/08/23 History Allergies Allergy/AdvReac Type Severity Reaction Status Date / Time No Known Allergies Allergy Verified 12/09/21 13:25 Vital Signs Vital Signs - 24 hr 09/08/23 17:15 09/08/23 17:29 09/08/23 17:44 Temperature Pulse Rate 81 87 85 Respiratory Rate Blood Pressure 137/89 138/88 117/89 Pulse Oximetry 09/08/23 17:59 09/08/23 18:14 09/08/23 18:29 Temperature Pulse Rate 80 74 82 Respiratory Rate Blood Pressure 131/82 124/82 125/87 Pulse Oximetry 09/08/23 18:44 09/08/23 18:59 09/08/23 19:14 Temperature Pulse Rate 80 82 79 Respiratory Rate Blood Pressure 123/86 122/79 120/86 Pulse Oximetry 09/08/23 19:29 09/08/23 19:42 09/08/23 19:44 Temperature Pulse Rate 77 75 Respiratory Rate Blood Pressure 119/83 128/70 Pulse Oximetry 97 09/08/23 19:59 09/08/23 20:06 09/08/23 20:15 Temperature Pulse Rate 91 77 Respiratory Rate Blood Pressure 147/83 H 124/72 Pulse Oximetry 98 08/18
--- NOTE | 2023-09-16 12:53 | PM.DS ---
DS: Admitting Diagnosis Discharge Date 09/09/23 Admitting Diagnosis preeclampsia DS: Discharge Diagnosis Discharge Diagnosis (1) Preeclampsia in period: Code(s): O14.95 - Unspecified pre-eclampsia, complicating the puerperium Status: Acute DS: Summary Hospital Course Hospital Course: Admitted for magnesium sulfate, observation. Was able to go home the next day. See H&P for details. Time Spent with Patient Time attestation: Total time spent providing and/or coordinating discharge services: Discharge Plan Discharge Attending physician on discharge: Jason Brown Discharging Clinician: Jason Brown Patient Disposition: Home, Self-Care Activity: pelvic rest Diet: regular Discharge Instructions: Call or return if temperature above 100.4? F, increased abdominal pain, increased vaginal bleeding or any new problems. Stand Alone Forms: General Discharge Information Follow-up/Referrals: Jason Brown MD [Physician] - Call for Appointment Discharge Medications: New nifedipine [Procardia XL] 30 mg tablet extended release 24hr 30 mg PO DAILY Qty: 30 1RF Continued azathioprine 50 mg tablet 100 mg PO DAILY acetaminophen 500 mg Tablet 1,000 mg PO Q6H PRN (Reason: Pain) prenat.vits,siobhan,vpm-kbwx-ikgyi Tablet 1 tablet PO DAILY ibuprofen 600 mg tablet 400 mg PO Q6H PRN (Reason: cramps) ferrous sulfate 325 mg (65 mg iron) tablet 325 mg PO DAILY Qty: 30 0RF Date of admission: 09/08/23 16:10 Primary Care Provider: Meena,Dominique Colunga Admitting Provider: Jason Brown Attending physician on admission: Jason Brown Condition: Stable
== END 2023-09-09 13:38 | disposition home or self-care (01) ==
PROVIDERS: Admitting Provider Obstetrics & Gynecology; PCP Internal Medicine; Visit Provider Obstetrics & Gynecology
DX: O14.95 Unspecified pre-eclampsia, complicating the puerperium (principal)
CPT/HCPCS: 36415; 80053; 81001; 84550; 85025; 85027; 96361; 96365; 96366; 96376; A9270; G0378; G0379; J3475; J7120

== ENCOUNTER 2023-11-14 01:17 | Day surgery (SDC) | payer BC, SELFPAY ==
--- NOTE | 2023-11-13 13:34 | PC.NURSE ---
Report to the Outpatient Waiting Room, entrance under the green pavilion located off [facility], at time _0945_ on date _[id number]_. Planned Procedure Time: _1145_. Time changes happen often and if your time is changed the preop area will call you the afternoon before. - You and your visitor will be asked to self-screen and do not enter if you have any COVID symptoms. - A mask is optional within the hospital at this time. Patients may have clear liquids (water, carbonated beverages, clear teas, apple juice) until 3 hours prior to surgery with a maximum of 20 ounces. - No food from midnight until time of surgery Take the following medications with a SIP of water the morning of surgery: __Propanolol, and Azithrioprine DO NOT STOP ANY OF YOUR OTHER PRESCRIPTION MEDICATIONS PRIOR TO SURGERY ?EXCEPT THE FOLLOWING Medications to discontinue per physician __Vitamin, Coq10 and patient is stopping Naltraxone Date to take last dose__Stop now. Please no make-up, nail indonesian, hairspray, perfume, deodorant, or body powder the day of surgery. No jewelry (including any body piercings) or valuables the day of surgery, leave them at home. Please take a shower or bath the night before, or the morning of, surgery with an antibacterial soap. Wear comfortable, loose fitting clothing. - Jewelry must be removed prior to entering the operating room. Rings and piercings that are not removed may be cut off. - The hospital will not accept responsibility for valuables. - Please leave all valuables, including medications, at home the day of surgery. If you are going home after surgery, a licensed cryogenic transport driver must drive you home. - NO public transportation without another adult if you receive anesthesia. - We recommend that an adult stay with you for 24 hours following discharge. - We also recommend that you do not drive, make important decision, drink alcoholic beverages, or take any drugs that were not prescribed by your health care provider for at least 24 hours after your discharge time. Follow any additional instructions given to you from your surgeon. If you or anyone in your household have experienced Covid symptoms in the past week, please notify your surgeon or the nurse liaison at the phone number below for possible testing. Telephone instructions given to __Rebecca and asked if any additional questions and then verbalized understanding. Patient advised to call surgeon office or pre surgery nurse liaison [phone] if any additional questions.
[2023-11-13 13:37] VITALS: BMI 21.4
--- NOTE | 2023-11-13 16:13 | PM.IMHP ---
H&P: HPI History of Present Illness Date/Time: 11/13/23 16:13 Chief Complaint: pelvic pain and complex cyst was Narrative: 38 year 5 para 5 with pelvic pain a complex left ovarian cyst patient had scan which she has had pain for quite some time this left ovary appears to be a be hemorrhagic cyst this caused her severe and irreversible pain. She will undergo laparoscopy with possible bilateral cystectomy and possible left salpingo-oophorectomy risks and benefits reviewed removed with the , aspiration, bleeding, transfusion, perforation injury to bowel, bladder, ureters, other internal organs with need for laparotomy. She received the [employer] handout entitled laparoscopy. She had all questions answered. She asked to proceed. [facility] Past Medical History Medical History Crohn's disease No pertinent past medical history Surgical History Surgical History No pertinent past surgical history Family History Family History Mother Family history non-contributory Social History Social History Smoking status: Never smoker Second hand tobacco smoke exposure: No Substance use: never Do You Feel Safe in your Home?: Yes Lack of Transportation: No Lack of Food: Never True Current Housing: I Have Housing Concerned About Future Housing: No Difficulty Paying Gas/Electric Bills: No Difficulty Paying for Meds: No Currently Unemployed: No Education: Master's Degree or Higher Difficulty w/ Childcare or Family Care: No Living arrangements: with family Gender identity (if verbalized by the patient): Female Sexual Orientation (if Verbalized by the Patient): Straight or Heterosexual Spiritual care concerns: No Meds Home Medications and Allergies Home Medications Medication Instructions Recorded Confirmed Type azathioprine 50 mg tablet 100 mg PO DAILY 09/08/23 11/13/23 History prenat.vits,siobhan,xav-nzxq-awejp 1 tablet PO DAILY 09/08/23 11/13/23 History coenzyme Q10 100 mg capsule 200 mg PO DAILY 11/13/23 11/13/23 History (CoQ-10) lorazepam 0.5 mg tablet (Ativan) 0.5 mg PO BID PRN Anxiety 11/13/23 11/13/23 History naltrexone 1.5 mg capsule 3 mg PO DAILY 11/13/23 11/13/23 History propranolol 10 mg tablet 10 mg PO DAILY 11/13/23 11/13/23 History Allergies Allergy/AdvReac Type Severity Reaction Status Date / Time No Known Allergies Allergy Verified 11/13/23 13:22 Exam Const: General: cooperative, healthy appearing and comfortable Nutritional Appearance: average body habitus Orientation/consciousness: oriented to person, oriented to place and oriented to time Resp: Effort & Inspection: normal respiratory effort Cardio: Rate: regular rate Rhythm: regular rhythm Heart sounds: S1 normal heart sound present and S2 normal heart sound present GI: Inspection: normal to inspection : External Female Exam: normal external appearance Speculum Exam - Vagina: normal appearance of the vagina Speculum Exam - Cervix: normal appearance of the cervix Bimanual exam- vagina & uterus: non-tender Bimanual Exam- Adnexa, other: tender on the left Assessment and Plan Assessment and plan (1) Complex cyst of left ovary: Code(s): N83.292 - Other ovarian cyst, left side Status: Acute (2) Pelvic pain: Code(s): R10.2 - Pelvic and perineal pain Status: Acute Plan laparoscopic bilateral cystectomy possible left salpingo-oophorectomy
[2023-11-14] VITALS (9 sets, daily range): BP systolic 115–145; BP diastolic 53–94; PULSE 52–96; RESP 12–16; TEMP 36.1–36.4; O2SAT 98–100; BMI 21.4
--- NOTE | 2023-11-14 04:43 | WPDHPUPDATE1 ---
History and Physical Update Update Date/Time: 11/14/23 04:43 History and Physical has been reviewed, including an updated exam of the patient. There are NO changes in the patient's condition. Risks, benefits, and alternatives have been discussed and questions answered. Patient agrees to proceed with procedure.
--- NOTE | 2023-11-14 09:55 | ECG_ITS ---
Test Date: 2023-11-14 10:14:21 Measurements Intervals [place] Rate: 64 P: 12 IA: 137 QRS: 53 QRSD: 88 T: 28 QT: 413 QTc: 427 Interpretive Statements SINUS RHYTHM NORMAL ELECTROCARDIOGRAM No previous ECG available for comparison Electronically Signed On 11-14-2023 15:46:52 CDT by Gordo Farley M.D.
--- NOTE | 2023-11-14 10:11 | P.PNAN_ITS ---
Anes - Initial Pre Proc Eval Procedure: Operation Date: 11/14/23 11:45 Proposed Procedures p Laparoscopic Bilateral Ovarian Cystectomy, Possible Left Salpingo-oophorectomy - Horacio Weinstein MD Date/Time: 11/14/23 10:11 Surgeon: Horacio Weinstein MD Pre Op Diagnosis: bilateral ovarian cyst, pain Patient Data Age: 38 Gender: F Height: 1.63 m Weight: 56.8 kg Allergies Allergy/AdvReac Type Severity Reaction Status Date / Time No Known Allergies Allergy Verified 11/13/23 13:22 Home Medications Medication Instructions Recorded Confirmed Type azathioprine 50 mg tablet 100 mg PO DAILY 09/08/23 11/13/23 History prenat.vits,siobhan,ftr-clyg-qnekn 1 tablet PO DAILY 09/08/23 11/13/23 History coenzyme Q10 100 mg capsule 200 mg PO DAILY 11/13/23 11/13/23 History (CoQ-10) lorazepam 0.5 mg tablet (Ativan) 0.5 mg PO BID PRN Anxiety 11/13/23 11/13/23 His tory naltrexone 1.5 mg capsule 3 mg PO DAILY 11/13/23 11/13/23 History propranolol 10 mg tablet 10 mg PO DAILY 11/13/23 11/13/23 History hydrocodone 5 mg-acetaminophen 325 1 tablet PO Q4H PRN pain #30 tabs 11/14/23 Rx mg tablet Patient hx anesthesia problems: none Family hx anesthesia problems: none Results Review: All pre-operative results and documents have been reviewed as part of the pre- operative evaluation. [facility] Past Medical History Medical History Crohn's disease No pertinent past medical history Surgical History Surgical History No pertinent past surgical history Family History Family History Mother Family history non-contributory Social History Social History Smoking status: Never smoker Second hand tobacco smoke exposure: No Substance use: never Do You Feel Safe in your Home?: Yes Lack of Transportation: No Lack of Food: Never True Current Housing: I Have Housing Concerned About Future Housing: No Difficulty Paying Gas/Electric Bills: No Difficulty Paying for Meds: No Currently Unemployed: No Education: Master's Degree or Higher Difficulty w/ Childcare or Family Care: No Living arrangements: with family Gender identity (if verbalized by the patient): Female Sexual Orientation (if Verbalized by the Patient): Straight or Heterosexual Spiritual care concerns: No Anes - Eval Final PreProcedure Day of Procedure 11/14/23 10:11 Patient weight: normal Heart: regular rate and rhythm Lungs: clear to auscultation Airway: Mallampati scale class II Neurological: alert and oriented Last oral intake: >/= 8 hours ASA classification: II Emergent: no Anesthetic plan: proceed Anesthesia type and monitoring: general GIVS and standard monitoring Results Review: All pre-operative results and documents have been reviewed as part of the pre- operative evaluation. Informed Consent: The patient's anesthetic plan and its attendant risks and benefits were discussed with the patient/family/POA. Questions were solicited and answers provided to the satisfaction of the patient/family/POA.
[2023-11-14] MEDS: LACTATED RINGERS 1,000 ML 30 ML IV CONT (10:25)
[2023-11-14] MEDS: KETOROLAC 15 MG/ML VIAL (*BKC) IV PUSH (10:32)
[2023-11-14] MEDS: ACETAMINOPHEN 500 MG TABLET 1000 MG PO (10:32)
[2023-11-14] MEDS: SCOPOLAMINE 1 MG PATCH 1 PATCH TRANSDERM (10:35)
--- NOTE | 2023-11-14 11:18 | W.PM.PROC2 ---
Procedure Note - Detailed Date of Procedure 11/14/23 Pre-op Diagnosis bilateral ovarian cyst, pain Post-op Diagnosis Same Procedure Performed Laparoscopic left salpingo-oophorectomy Surgeon Horacio Weinstein MD Anesthesia General Indications 38-year-old female complex left ovarian cyst Findings normal-appearing uterus tubes. Complex appearing left ovarian cyst large amount vascularity. Normal-appearing appendix. Description of Procedure Patient was prepped draped in normal sterile fashion placed in dorsal lithotomy position. Under excellent general trach anesthesia speculum placed posterior fornix. Anterior lip of the cervix grasped a single-tooth tenaculum. The bladder drained of clear urine the weighted speculum was removed. The gloves were changed. An infraumbilical incision made the Veress needle passed in the abdomen. Abdomen filled with CO2 gas to 15mm Hg. A 5mm trocar advanced under direct visualization assuring injury. Patient placed in Trendelenburg and a suprapubic incision made. The 5mm trocar advanced under direct visualization assuring no injury. Complex left ovarian cyst was seen in the rate ovary had a small follicle which was not touched. The uterus appeared within normal limits the appendix appeared within normal limits. A left lower quadrant incision made the 8mm trocar advanced under direct visualization assuring injury. The Endo-Catch was placed through that trocar and the 5 at of following use of the LigaSure across the infundibulopelvic. This was removed through the left lower quadrant irrigation was undertaken and no other abnormalities were seen. The lower sites then removed. The gas removed from the abdomen. The upper site removed. Incisions closed with 4 Monocryl glue. The instruments removed from vagina. The patient went to recovery in satisfactory condition. All sponge, needle, instrument counts were correct. There were no immediate complications Estimated Blood Loss 5 Drains No Packing No Pathology Yes Complications No immediate complications Condition Stable Disposition PACU
[2023-11-14] MEDS: fentaNYL CITRATE INJ (*CRX) 100 MCG/2 ML VIAL 25 MCG IV PUSH ×8 (11:48→12:22)
[2023-11-14] MEDS: oxyCODONE HCL (*CRX) 5 MG TAB IR PO (12:40)
== END 2023-11-14 13:50 | disposition home or self-care (01) ==
PROVIDERS: PCP Internal Medicine; Visit Provider Obstetrics & Gynecology
PROC: (CPT 49320; principal; 2023-11-14 11:45)
DX: N83.12 Corpus luteum cyst of left ovary (principal); N83.02 Follicular cyst of left ovary; K50.90 Crohn's disease, unspecified, without complications
CPT/HCPCS: 58661; 36415; 88305; 93005; A9270; J1100; J1170; J1200; J1885; J2250; J2405; J2704; J3010; J7120

== ENCOUNTER 2024-04-06 13:30 | Outpatient (CLI) | payer BC, SELFPAY ==
--- NOTE | ~2024-04-06 | MM_ITS ---
CORRECTED REPORT added w jeff to examination section [facility] [place] 04/07/24 This report was recreated on 04/07/24. Original report was [employer] EXAMINATION: MM screening mammo implant BI w jeff HISTORY: Screening mammogram TECHNIQUE: Craniocaudal and mediolateral oblique 3-D tomosynthesis images with implant displacement and synthetic 2-D images were generated. Craniocaudal and mediolateral oblique views of the breasts without implant displacement were obtained using full field digital mammography. CAD analysis was submitted and interpreted. COMPARISON: No prior mammogram is available for comparison at this institution. BREAST PARENCHYMAL COMPOSITION: The breasts are heterogeneously dense, which may obscure small masses. FINDINGS: There is no evidence of suspicious mass, calcification, or architectural distortion to suggest malignancy in either breast. There has been no suspicious interval change. IMPRESSION: No mammographic evidence of malignancy. Recommend routine screening mammography in one year. BI-RADS Category 1: Negative Reviewed, dictated and finalized at location . [employer] MTDD
== END 2024-04-06 13:31 | disposition home or self-care (01) ==
PROVIDERS: PCP Internal Medicine; Visit Provider Obstetrics & Gynecology
DX: Z12.31 Encounter for screening mammogram for malignant neoplasm of breast (principal)
CPT/HCPCS: 77063; 77067